=== PATIENT | female | born 1925 | race Caucasian/White ===

== ENCOUNTER 2017-09-21 07:40 | Emergency (ER) | payer MEDICARE ==
[~2017-09-21] VITALS: Ht 152.4 cm; Wt 65.8 kg
[~2017-09-21 07:40] MED LIST: ASCO500C PO; ASPI81TA19 PO; CARV6.252 PO; CELE100C PO; CITA40TA4 PO; CITRTAB13 PO; CRAN125T PO; ERYTOIN10 EACH EYE; GABA300C5 PO; LEVO.05 PO; LOSA100T2 PO; MULT-135 PO; NIFE30TA61 PO; NORC5TAB PO; OMEG100037 PO; SIMV10TA PO; TEMA15CA PO; VITA400C2 PO
[2017-09-21 07:46] VITALS: BP 166/76; PULSE 74; RESP 16; TEMP 98.2; O2SAT 96
--- NOTE | 2017-09-21 08:06 | PD ---
HPI Chief Complaint: Flank/Kidney Pain Time Seen by Provider: 08:03 Travel History International Travel<30 days: No Contact w/Intl Traveler<30days: No Traveled to known affect area: No History of Present Illness HPI Patient presents with complaints of colicky right upper quadrant abdominal pain. Denies nausea. No history of kidney stones. Onset last night. History of hysterectomy, cholecystectomy and appendectomy. Last bowel movement yesterday. Denies nausea vomiting diarrhea or fever. Denies any new chest pain shortness of breath urinary or bowel symptoms. Patient does admit to some abnormal physical activity yesterday. PFSH Past Medical History Arthritis: Yes Depression: Yes Cancer: Yes (SKIN CANCER, SCALP) Cardiovascular Problems: Yes (Heart murmur) Diabetes: No Diminished Hearing: Yes (bialteral hearing aids) Gastrointestinal Disorders: Yes (ESOPHAGEAL SPASMS/STRICURES WITH DILITATION) Hypertension: Yes Musculoskeletal: Yes (SPINAL STENOSIS) Neurologic: Yes (NEUROPATHY) Thyroid Disease: Yes Menopausal: Yes : 4 Para: 4 Past Surgical History Appendectomy: Yes Cholecystectomy: Yes Eye Surgery: Yes (BILAT CATARACTS) Genitourinary Surgery: Yes (BLADDER) Gynecologic Surgery: Yes (BILAT LUMPECTOMY) Hysterectomy: Yes Joint Replacement: Yes (LEFT KNEE) Other Surgery: Yes (PARATHYROIDECTOMY 05/01/12) Social History Alcohol Use: No Tobacco Use: No Substance Use: No Allergies-Medications (Allergen,Severity, Reaction): Coded Allergies: levofloxacin (Unverified Allergy, Severe, Rash, 09/21/17) cephalexin (Unverified Allergy, Intermediate, Facial redness, 09/21/17) Iodinated Contrast- Oral and IV Dye (Verified Allergy, Unknown, 09/21/17) MRI PRECAUTION (Verified Allergy, Unknown, 09/21/17) tetanus toxoid, adsorbed (Unverified Allergy, Unknown, Unknown, 09/21/17) Reported Meds & Prescriptions Reported Meds & Active Scripts Active [place] (Hydrocodone-Acetaminophen) 5-325 mg Tab 1 Tab PO Q8HR PRN Reported Cranberry (Cranberry Fruit Extract) 500 Mg Capsule 1 Tab PO DAILY Vitamin E 200 Unit Cap 400 Units PO SUTUTH Vitamin C (Ascorbic Acid) 250 Mg Chew 500 Mg CHEW DAILY Erythromycin Opth Oint 5 Mg/Gm Oint 1 Applic EACH EYE DAILY Aspir-Low (Aspirin) 81 Mg Tabdr 1 Tab PO DAILY Temazepam 15 Mg Cap 15 Mg PO HS Simvastatin 10 Mg Tab 10 Mg PO HS Nifedipine ER 24 HR (Nifedipine) 30 Mg Tab 15 Mg PO DAILY Gabapentin 300 Mg Cap 300 Mg PO TID Citracal Plus (Multiple Minerals W/ Vitamins) 1 Tab Tab 1 Tab PO BID Citalopram (Citalopram Hydrobromide) 40 Mg Tab 40 Mg PO DAILY Losartan-Hydrochlorothiazide 100-25 Mg Tab 1 Tab PO DAILY Synthroid (Levothyroxine Sodium) 50 Mcg Tab 50 Mcg PO DAILY Review of Systems General / Constitutional: No: Fever Eyes: No: Visual changes HENT: No: Headaches Cardiovascular: No: Chest Pain or Discomfort Respiratory: No: Shortness of Breath Gastrointestinal: Positive: Abdominal Pain Genitourinary: No: Dysuria Musculoskeletal: No: Pain Skin: No Rash Neurologic: No: Weakness Psychiatric: No: Depression Endocrine: No: Polydipsia Hematologic/Lymphatic: No: Easy Bruising Physical Exam Narrative GENERAL: Well-nourished, well-developed patient. SKIN: Focused skin assessment warm/dry. HEAD: Normocephalic. EYES: No scleral icterus. No injection or drainage. NECK: Supple, trachea midline. No JVD or lymphadenopathy. CARDIOVASCULAR: Regular rate and rhythm without murmurs, gallops, or rubs. RESPIRATORY: Breath sounds equal bilaterally. No accessory muscle use. GASTROINTESTINAL: Abdomen soft, diffusely tender right upper quadrant, nondistended. MUSCULOSKELETAL: No cyanosis, or edema. BACK: Nontender without obvious deformity. No CVA tenderness. Data Data Last Documented VS Vital Signs Date Time Temp Pulse Resp B/P (MAP) Pulse Ox O2 Delivery O2 Flow Rate FiO2 09/21/17 08:55 95 09/21/17 08:11 16 09/21/17 07:46 98.2 74 166/76 (106) Orders Orders Urinalysis - C+S If Indicated (09/21/17 07:51) Complete Blood Count With Diff (09/21/17 08:23) Comprehensive Metabolic Panel (09/21/17 08:23) Lipase (09/21/17 08:23) Lactic Acid (09/21/17 08:23) Iv Access Insert/Monitor (09/21/17 08:23) Ecg Monitoring (09/21/17 08:23) Oximetry (09/21/17 08:23) Sodium Chloride 0.9% Flush (Ns Flush) (09/21/17 08:30) Ct Abd/Pel W/O Iv Contrast (09/21/17 ) Potassium Chloride (Kcl) (09/21/17 09:45) Labs Laboratory Tests Test 09/21/17 07:50 09/21/17 08:35 Urine Collection Type CLEAN CATCH Urine Color YELLOW Urine Turbidity CLEAR Urine pH 5.5 Urine Specific [place] 1.014 Urine Protein NEG mg/dL Urine Glucose (UA) NEG mg/dL Urine Ketones NEG mg/dL Urine Occult Blood NEG Urine Nitrite NEG Urine Bilirubin NEG Urine Leukocyte Esterase TRACE Urine WBC 0-2 /hpf Urine Squamous Epithelial Cells 0-5 /hpf Microscopic Urinalysis Comment CULT NOT INDICATED Urine Collection Time 07:50 White Blood Count 8.1 TH/MM3 Red Blood Count 4.45 MIL/MM3 Hemoglobin 13.1 GM/DL Hematocrit 39.7 % Mean Corpuscular Volume 89.2 FL Mean Corpuscular Hemoglobin 29.6 PG Mean Corpuscular Hemoglobin Concent 33.1 % Red Cell Distribution Width 13.5 % Platelet Count 162 TH/MM3 Mean Platelet Volume 7.9 FL Neutrophils (%) (Auto) 66.3 % Lymphocytes (%) (Auto) 22.6 % Monocytes (%) (Auto) 9.2 % Eosinophils (%) (Auto) 1.2 % Basophils (%) (Auto) 0.7 % Neutrophils # (Auto) 5.4 TH/MM3 Lymphocytes # (Auto) 1.8 TH/MM3 Monocytes # (Auto) 0.7 TH/MM3 Eosinophils # (Auto) 0.1 TH/MM3 Basophils # (Auto) 0.1 TH/MM3 CBC Comment DIFF FINAL Differential Comment Blood Urea Nitrogen 25 MG/DL Creatinine 1.20 MG/DL Random Glucose 120 MG/DL Total Protein 7.1 GM/DL Albumin 3.5 GM/DL Calcium Level 9.6 MG/DL Alkaline Phosphatase 57 U/L Aspartate Amino Transf (AST/SGOT) 18 U/L Alanine Aminotransferase (ALT/SGPT) 17 U/L Total Bilirubin 0.5 MG/DL Sodium Level 140 MEQ/L Potassium Level 3.2 MEQ/L Chloride Level 103 MEQ/L Carbon Dioxide Level 31.6 MEQ/L Anion Gap 5 MEQ/L Estimat Glomerular Filtration Rate 42 ML/MIN Lactic Acid Level 2.5 mmol/L Lipase 245 U/L MDM Medical Decision Making Medical Screen Exam Complete: Yes Emergency Medical Condition: Yes Differential Diagnosis Liver disease, nephrolithiasis, colitis, small bowel obstruction, musculoskeletal Narrative Course Assessment and plan discussed with patient and daughter at bedside. Hypokalemia noted and replaced. Renal insufficiency appears stable. Last 72 hours Impressions Abdomen/Pelvis CT 09/21/17 0000 Signed Impressions: Service Date/Time: Thursday, September 21, 2017 09:01 - CONCLUSION: 1. Colonic diverticula especially on the left side. Significant inflammatory change is not seen. 2. Mild hiatal hernia. 3. Left adrenal gland adenoma. Toby Tian MD Diagnosis Primary Impression: RUQ discomfort Patient Instructions: General Instructions Additional Instructions: Encouraged Tylenol for discomfort, Levsin for spasms, encouraged a bland high- fiber brat diet. Encouraged to follow-up with PCP. Encouraged to return to emergency with any onset of new symptoms. Med/Other Pt SpecificInfo: Prescription(s) given Scripts Hyoscyamine (Levsin) 0.125 Mg Tab 0.125 MG PO Q6H for Gastrointestinal disorders, #20 TAB 0 Refills Prov: Carlos Peter MD 09/21/17 Disposition: 01 DISCHARGE HOME Condition: Good Carlos Peter MD Sep 21, 2017 08:06
[2017-09-21 08:09] LABS: BILIRUBIN, URINE NEG (NEG); BLOOD, URINE NEG (NEG); GLUCOSE,URINE NEG (NEG); KETONE, URINE NEG (NEG); NITRITE,URINE NEG (NEG); PH, URINE 5.5 (5.0-8.5); URINE LEUKOCYTE ESTERASE TRACE (NEG)
[2017-09-21 08:10] LABS: URINE COLOR YELLOW (YELLW/STRAW)
[2017-09-21 08:11] LABS: SQUAMOUS EPITHELIAL CELL URINE 0-5 /hpf (0-5); WBC, URINE 0-2 /hpf (0-5)
[2017-09-21] MEDS ORDERED: CRAN500C9 PO (08:11)
[2017-09-21] MEDS ORDERED: FISHCAP4 PO (08:11)
[2017-09-21] MEDS ORDERED: VITA200C3 PO (08:11)
[2017-09-21] MEDS ORDERED: VITA250C3 CHEW (08:11)
[2017-09-21] MEDS ORDERED: SODIUM CHLORIDE 0.9% FLUSH 10 ML FLUSH IV FLUSH PRN (08:30)
[2017-09-21 08:43] LABS: AUTOMATED NEUTROPHIL # 5.4 TH/MM3 (1.8-7.7); BASOPHIL # 0.1 TH/MM3 (0-0.2); BASOPHIL % 0.7 % (0.0-2.0); EOSINOPHIL # 0.1 TH/MM3 (0-0.4); EOSINOPHIL % 1.2 % (0.0-4.0); HEMATOCRIT 39.7 % (35.0-46.0); HEMOGLOBIN 13.1 GM/DL (11.6-15.3); LYMPH % 22.6 % (9.0-44.0); LYMPHOCYTE # 1.8 TH/MM3 (1.0-4.8); MEAN CELL VOLUME 89.2 FL (80.0-100.0); MEAN CORPUSCULAR HEMOGLOBIN 29.6 PG (27.0-34.0); MEAN CORPUSCULAR HGB CONC 33.1 % (32.0-36.0); MEAN PLATELET VOLUME 7.9 FL (7.0-11.0); MONO % 9.2 % (0.0-8.0); MONOCYTE # 0.7 TH/MM3 (0-0.9); NEUT % 66.3 % (16.0-70.0); PLATELET COUNT 162 TH/MM3 (150-450); RED BLOOD COUNT 4.45 MIL/MM3 (4.00-5.30); RED CELL DISTRIBUTION WIDTH 13.5 % (11.6-17.2); WHITE BLOOD COUNT 8.1 TH/MM3 (4.0-11.0)
[2017-09-21 08:53] LABS: CHLORIDE 103 MEQ/L (98-107); SODIUM (NA) 140 MEQ/L (136-145)
[2017-09-21 08:55] VITALS: O2SAT 95
[2017-09-21 08:57] LABS: ALBUMIN 3.5 GM/DL (3.4-5.0); BICARBONATE 31.6 MEQ/L (21.0-32.0); BLOOD UREA NITROGEN 25 MG/DL (7-18); CALCIUM 9.6 MG/DL (8.5-10.1); GLUCOSE,RANDOM 120 MG/DL (74-106)
[2017-09-21 09:00] LABS: ALT (GPT) 17 U/L (10-53); AST (GOT) 18 U/L (15-37); GLOMERULAR FILTRATION RATE 42 ML/MIN (>89)
[2017-09-21 09:02] LABS: TOTAL BILIRUBIN ADULT 0.5 MG/DL (0.2-1.0); TOTAL PROTEIN 7.1 GM/DL (6.4-8.2)
[2017-09-21 09:03] LABS: ALKALINE PHOSPHATASE 57 U/L (45-117)
--- NOTE | 2017-09-21 09:24 | RADRPT ---
EXAM DATE/TIME: 09/21/2017 09:01 [facility] COMPARISON: No previous studies available for comparison. INDICATIONS : Right sided abdominal pain with spasms. ORAL CONTRAST: No oral contrast ingested. RADIATION DOSE: 13.59 CTDIvol (mGy) MEDICAL HISTORY : Hypertension. Murmur,spinal stenosis, neuropathy SURGICAL HISTORY : Appendectomy. Cholecystectomy.Esoph dilitation, bilateral lumpectomy. ENCOUNTER: Initial ACUITY: 1 day PAIN SCALE: 2/10 LOCATION: Right flank TECHNIQUE: Volumetric scanning of the abdomen and pelvis was performed. Using automated exposure control and ad justment of the mA and/or kV according to patient size, radiation dose was kept as low as reasonably achievable to obtain optimal diagnostic quality images. DICOM format image data is available electro nically for review and comparison. FINDINGS: LOWER LUNGS: The visualized lower lungs are clear. LIVER: Homogeneous density without lesion. There is no dilation of the biliary tree. The gallbladder appear s absent. SPLEEN: Normal size without lesion. PANCREAS: Within normal limits. KIDNEYS: Normal in size and shape. There is no mass, stone, or hydronephrosis. ADRENAL GLANDS: There is a 1.3 cm low-density, -5 Hounsfield unit, round mass at the lateral limb of the left adrenal gland consistent with an adenoma. VASCULAR: There is no aortic aneurysm. Atherosclerotic calcifications are seen throughout the arterial system. BOWEL/MESENTERY: There is a mild hiatal hernia. There are diverticula seen throughout the colon especially on the left side. There is fat at the ileocecal valve and in the ascending colon wall. The appendix is not seen. Significant inflammatory change is not seen. ABDOMINAL WALL: There is a small umbilical hernia containing only mesenteric fat. RETROPERITONEUM: There is no lymphadenopathy. BLADDER: No wall thickening or mass. REPRODUCTIVE: The patient is status post hysterectomy. INGUINAL: There is no lymphadenopathy or hernia. MUSCULOSKELETAL: There is an old healed left rib fracture. There is degenerative change at the lumbar spine. CONCLUSION: 1. Colonic diverticula especially on the left side. Significant inflammatory change is not seen. 2. Mild hiatal hernia. 3. Left adrenal gland adenoma. Toby Tian MD on September 21, 2017 at 9:14 Board Certified Radiologist. This report was verified electronically.
[2017-09-21] MEDS ORDERED: POTASSIUM CHLORIDE 20 MEQ CONTROLLED RELEASE TAB PO ONE (09:45)
[2017-09-21] MEDS ORDERED: LEVS0.123 PO (09:56)
[2017-09-21 10:15] VITALS: BP 135/81; PULSE 81; RESP 16; O2SAT 96
--- NOTE | 2017-09-25 16:22 | MH ---
cc: Ede Benz MD,Ede Peter,Carlos Lazcano,Sylvain Hill MD DATE OF ADMISSION: 09/21/2017 HISTORY: The patient is 20, she has chronic otitis media, bilateral myringotomy and tube placed. PAST MEDICAL HISTORY: 1. Previous adenotonsillectomy. 2. Previous myringotomy tube placement. ALLERGIES: No known drug allergies. MEDICAL HISTORY: Unremarkable. SOCIAL HISTORY: Unremarkable. PHYSICAL EXAMINATION: IN GENERAL: Well appearing patient in no acute distress noted. HEENT: Examination reveals fluid behind each eardrum with retracted drums. LUNGS: The lungs are clear. HEART: Regular rate and rhythm. ABDOMEN: The abdomen is soft, nontender. EXTREMITIES: No edema. NEUROLOGICALLY: Alert, oriented, normal neurologic examination. IMPRESSION/PLAN: Patient with chronic otitis for tubes. The patient instructed on method of surgery and possible complications including anesthetic complications, cardiac difficulties. Pulmonary difficulty, stroke, coma or even . Surgical complications of bleeding, infection, early or late extrusion of tube. Tympanic membrane perforation, conductive or sensory neural hearing loss. The patient appeared to agree, accept and understand the above mentioned risks, benefits. In addition no guarantees or warranties regarding outcome were given. We will therefore proceed with surgery. MD CHUY Lacey/ , 03:58 PM , 04:19 PM
== END 2017-09-21 10:21 | disposition home or self-care (01) ==
LOC: PHED 07:40
DX: R10.11 Right upper quadrant pain (principal); K57.30 Diverticulosis of large intestine without perforation or abscess without bleeding; K44.9 Diaphragmatic hernia without obstruction or gangrene; I10 Essential (primary) hypertension; M48.00 Spinal stenosis, site unspecified; F32.9 Major depressive disorder, single episode, unspecified; Z85.828 Personal history of other malignant neoplasm of skin; Z88.8 Allergy status to other drugs, medicaments and biological substances; Z79.82 Long term (current) use of aspirin; Z79.899 Other long term (current) drug therapy
CPT/HCPCS: 74176; 80053; 81001; 83605; 83690; 85025; 99284